=== PATIENT | female | born 1990 | race Caucasian/White ===

== ENCOUNTER 2018-06-08 14:27 | Emergency (ER) | payer OTHER ==
[~2018-06-08] VITALS: Ht 162.6 cm; Wt 104.3 kg
[2018-06-08 14:30] VITALS: BP 115/66
--- NOTE | 2018-06-08 16:34 | NUR ---
PATIENT AMBULATED TO ER BED 1
--- NOTE | 2018-06-08 17:00 | NUR ---
Note undone in EDM - 06/08/18 at 1827 by MEDDCV PT IS A 27 Y/O FEMALE WHO PRESENTS TO THE ED C/O L ARM PAIN. PT WAS SKATING X1 WEEK HEEL GOUGER AND FELL ON L ARM. PT REPORTS 10/10 ACHING L ARM PAIN THAT DOES NOT RADIATE. CMS INTACT, PT IS GUARDED, NO OBVIOUS TRAUMA/DEFORMITY. PT DENIES CP, SOB, N/V/D. PT AWAKE AND ALERT, RR EVEN/UNLABORED. PT REPOSITIONED FOR COMFORT, BED IN LOWEST POSITION. ER MD DR. PETERS NOTIFIED. WILL CONTINUE TO MONITOR.
[2018-06-08] MEDS ORDERED: KETOROLAC 60 MG/2 ML VIAL IM ONE (17:30)
[2018-06-08 18:20] VITALS: BP 108/67
--- NOTE | 2018-06-08 18:20 | NUR ---
Patient discharged with v/s stable. Written and verbal after care instructions given and explained. Patient alert, oriented and verbalized understanding of instructions. Ambulatory with steady gait. All questions addressed prior to discharge. ID band removed. Patient advised to follow up with PMD. Rx of VOLTAREN XR 100MG given. Patient educated on indication of medication including possible reaction and side effects. Opportunity to ask questions provided and answered.
== END 2018-06-08 18:40 | disposition home or self-care (01) ==
LOC: MED 14:27
DX: S50.02XA Contusion of left elbow, initial encounter (principal); S40.012A Contusion of left shoulder, initial encounter; Z90.49 Acquired absence of other specified parts of digestive tract; W18.30XA Fall on same level, unspecified, initial encounter; Y93.51 Activity, roller skating (inline) and skateboarding; Y92.89 Other specified places as the place of occurrence of the external cause; Y99.8 Other external cause status
CPT/HCPCS: 73060; 73090; 73130; 96372; 99283; J1885

== ENCOUNTER 2020-11-09 22:43 | Emergency (ER) | payer OTHER ==
[~2020-11-09] VITALS: Ht 162.6 cm; Wt 99.8 kg
[2020-11-09 23:10] VITALS: BP 142/87
--- NOTE | 2020-11-09 23:13 | NUR ---
PT AMBULATED TO BED 11.
--- NOTE | 2020-11-09 23:15 | NUR ---
PT BIB SELF FOR C/C BILATERAL FLANK PAIN AND PELVIC PAIN X 4 DAYS. + BURNING, RETENTION AND HEMATURIA. DENIES N/V/D, FEVER, CHILLS, CP OR SOB. LOWER PELVIC REGION TENDER TO PALPATE. PT REPORTS "I TOOK MONISTAT FOR 2 DAYS AND IT SEEMED TO HELP, BUT RETURNED TODAY." MED HX: IRON DEFICIENCY ALLERGIES: NKDA, WALNUTS
[2020-11-10] MEDS ORDERED: NACL 0.9% 1,000 ML IV ONE (00:20)
[2020-11-10] MEDS ORDERED: KETOROLAC 30 MG/ML VIAL IVP ONE (00:20)
[2020-11-10 00:40] LABS: APPEARANCE,URINE CLOUDY (CLEAR); BILIRUBIN,URINE NEGATIVE (NEGATIVE); BLOOD, URINE 3+ (NEGATIVE); COLOR,URINE RED (YELLOW); LEUKOCYTE ESTERASE ,URINE 1+ (NEGATIVE); NITRITE, URINE NEGATIVE (NEGATIVE); PH,URINE 5.5 (5.0-9.0); UGLUCOSE NEGATIVE (NEGATIVE)
[2020-11-10 00:43] LABS: BASOPHILS % (AUTO) 0.5 % (0.0-2.0); EOSINOPHILS # (AUTO) 0.1 K/uL (0-0.4); HEMATOCRIT 33.9 % (36-48); HEMOGLOBIN 10.7 g/dL (12.0-16.0); LYMPHOCYTES % (AUTO) 25.8 % (20.5-51.1); MEAN CORPUSCULAR HEMOGLOBIN 26 pg (27-31); MEAN CORPUSCULAR HGB CONC 32 g/dL (33-37); MEAN CORPUSCULAR VOLUME 82.1 fL (80-94); MONOCYTES # (AUTO) 0.4 K/uL (0.8-1.0); MONOCYTES % (AUTO) 5.9 % (1.7-9.3); NEUTROPHILS # (AUTO) 5.1 K/uL (1.8-7.7); NEUTROPHILS % (AUTO) 66.8 % (42.2-75.2); PLATELET COUNT (AUTO) 320 K/uL (140-450); RED BLOOD CELL COUNT(AUTO) 4.13 MIL/uL (4.20-5.40); RED CELL DISTRIBUTION WIDTH 16.1 % (11.6-13.7); WHITE BLOOD COUNT (AUTO) 7.6 K/uL (4.8-10.8)
[2020-11-10 01:00] LABS: ALBUMIN 3.8 g/dL (3.4-5.0); ANION GAP 13.3 (8-16); CARBON DIOXIDE 24.5 mmol/L (21-32); CREATININE 0.8 mg/dL (0.6-1.3); POTASSIUM 3.8 mmol/L (3.5-5.1); TOTAL BILIRUBIN 0.2 mg/dL (0.0-1.0)
[2020-11-10 01:06] LABS: WBC,URINE TOO MANY TO COUNT /HPF (0-5)
[2020-11-10] MEDS ORDERED: cefTRIAXone 1,000 MG VIAL ONE (02:15)
--- NOTE | 2020-11-10 02:50 | NUR ---
PT AMBULATED TO RESTROOM AND BACK TO BED WITH EVEN AND STEADY GAIT.
[2020-11-10] MEDS ORDERED: CIPR500T4 PO (03:08)
[2020-11-10] MEDS ORDERED: NAPR-54 PO (03:08)
[2020-11-10 03:12] VITALS: BP 110/62
--- NOTE | 2020-11-10 03:12 | NUR ---
Patient discharged with v/s stable. Written and verbal after care instructions given and explained. Patient alert, oriented and verbalized understanding of instructions. Ambulatory with steady gait. All questions addressed prior to discharge. ID band removed. Patient advised to follow up with PMD. Rx of CIPRO AND NAPROSYN given. Patient educated on indication of medication including possible reaction and side effects. Opportunity to ask questions provided and answered.
== END 2020-11-10 03:12 | disposition home or self-care (01) ==
LOC: MED 22:43
DX: N39.0 Urinary tract infection, site not specified (principal); R11.0 Nausea; Z79.899 Other long term (current) drug therapy
CPT/HCPCS: 36415; 80053; 81001; 81025; 85025; 87086; 96361; 96365; 96375; 99284; J0696; J1885; J7030

== ENCOUNTER 2021-08-25 14:25 | Emergency (ER) | payer OTHER ==
[~2021-08-25] VITALS: Ht 162.6 cm; Wt 103.4 kg
[~2021-08-25 14:25] MED LIST: CIPR500T4 PO; NAPR-54 PO
--- NOTE | 2021-08-25 14:35 | NUR ---
WALKED IN TO ED C/O LEFT HIP NUMBNESS ONSET TODAY. PT STATES PAIN INITIALLY 3 DAYS AGO BUT NOW NUMBNESS. DENIES FALL OR INJURY. DENIES ANY HX OR PX. AAOX3, AMBULATORY, VSS, NKA.
[2021-08-25 14:36] VITALS: BP 138/76
[2021-08-25] MEDS ORDERED: KETOROLAC 60 MG/2 ML VIAL IM ONE (15:08)
[2021-08-25] MEDS: KETOROLAC 60 MG/2 ML VIAL IM ONE (15:09)
[2021-08-25 15:13] VITALS: BP 135/86
[2021-08-25] MEDS ORDERED: CIPR500T4 PO (15:19)
[2021-08-25] MEDS ORDERED: IBUP-2213 PO (15:19)
--- NOTE | 2021-08-25 15:45 | NUR ---
Patient discharged with v/s stable. Written and verbal after care instructions given and explained. Patient alert, oriented and verbalized understanding of instructions. Ambulatory with steady gait. All questions addressed prior to discharge. ID band removed. Patient advised to follow up with PMD. Rx of cipro and ibuprofen given. Patient educated on indication of medication including possible reaction and side effects. Opportunity to ask questions provided and answered.
== END 2021-08-25 15:45 | disposition home or self-care (01) ==
LOC: MED 14:25
DX: M79.652 Pain in left thigh (principal); N39.0 Urinary tract infection, site not specified; Z79.899 Other long term (current) drug therapy; Z90.49 Acquired absence of other specified parts of digestive tract
CPT/HCPCS: 81002; 81025; 96372; 99283; J1885

== ENCOUNTER 2023-01-25 09:44 | Emergency (ER) | payer OTHER ==
[~2023-01-25] VITALS: Ht 162.6 cm; Wt 89.8 kg
[~2023-01-25 09:44] MED LIST changes: +IBUP-2213 PO
[2023-01-25 09:53] VITALS: BP 115/67; PULSE 103; RESP 18; TEMP 98; O2SAT 98
[2023-01-25] MEDS ORDERED: BENZ-300 PO (12:02)
[2023-01-25] MEDS ORDERED: METH4TAB1 PO (12:02)
[2023-01-25 12:45] VITALS: BP 115/67; PULSE 103; RESP 18; TEMP 98; O2SAT 98
[2023-01-25 13:19] LABS: FLU A ANTIGEN negative (NEGATIVE); FLU B ANTIGEN NEGATIVE (NEGATIVE)
== END 2023-01-25 12:45 | disposition home or self-care (01) ==
LOC: MED 09:44
DX: J02.9 Acute pharyngitis, unspecified (principal); K12.1 Other forms of stomatitis; Z20.822 Contact with and (suspected) exposure to COVID-19; Z79.899 Other long term (current) drug therapy; Z79.1 Long term (current) use of non-steroidal anti-inflammatories (NSAID); Z79.2 Long term (current) use of antibiotics
CPT/HCPCS: 87081; 99283